=== PATIENT | female | born 1975 | race Hispanic/Latino ===

== ENCOUNTER 2020-09-02 06:42 | Observation (INO) | payer BC ==
[2020-08-27 16:59] LABS: BASOPHILS % (AUTO) 0.7 % (0.0-5.0); EOSINOPHILS % (AUTO) 1.8 % (0.0-8.0); HEMATOCRIT 40.4 % (36-48); LYMPHOCYTES % (AUTO) 27.2 % (21.0-51.0); MEAN CORPUSCULAR HEMOGLOBIN 28.8 pg (27.0-33.0); MEAN CORPUSCULAR HGB CONC 33.2 g/dL (32.0-36.0); MEAN CORPUSCULAR VOLUME 86.9 fL (79-99); MONOCYTES % (AUTO) 6.9 % (3.0-13.0); NEUTROPHILS % (AUTO) 63.1 % (40.0-77.0); PLATELET COUNT (AUTO) 334 K/uL (130-400); RED BLOOD CELL COUNT(AUTO) 4.65 MIL/uL (4.00-5.50); RED CELL DISTRIBUTION WIDTH 13.6 % (11.0-15.5); WHITE BLOOD COUNT (AUTO) 10.7 K/uL (4.8-10.8)
[2020-08-27 17:12] LABS: INR 0.94 (0.85-1.15); PROTHROMBIN TIME 10.3 SEC (9.6-11.6)
[2020-08-27 17:14] LABS: PARTIAL THROMBOPLASTIN TIME 28.2 SEC (26.3-35.5)
[2020-08-27 17:24] LABS: ALBUMIN 3.8 g/dL (3.5-5.0); BILIRUBIN,TOTAL 0.7 mg/dL (0.2-1.0); CREATININE 0.6 mg/dL (0.5-1.5); POTASSIUM 3.7 mmol/L (3.5-5.1); TOTAL PROTEIN, SERUM 8.1 g/dL (6.0-8.3)
[2020-09-01 09:17] VITALS: BP 123/71
[2020-09-02] VITALS (18 sets, daily range): BP systolic 125–156; BP diastolic 72–88
[~2020-09-02] VITALS: Ht 162.6 cm; Wt 72.6 kg
[2020-09-02] MEDS: CEFAZOLIN SODIUM 1 GM VIAL IVP SCH ×2 (06:00→07:50)
[~2020-09-02 06:42] MED LIST: ALBU0.63 IH; L-NO1TBD14 PO; METF-444 PO; VITAMIN D PO
[2020-09-02] MEDS ORDERED: EPINEPHRINE 1 MG/ML 30ML VIAL IJ ONE (06:49)
[2020-09-02] MEDS ORDERED: 0.9%NACL 1000ML 1,000 ML IV ONE (06:55)
[2020-09-02] MEDS ORDERED: ONDANSETRON 4MG INJ ONE (07:10)
[2020-09-02] MEDS ORDERED: MIDAZOLAM HCL 1 MG/ML 2ML VIAL ONE (07:10)
[2020-09-02] MEDS ORDERED: ESMOLOL HCL 10 MG/ML 10 ML VIAL ONE (07:10)
[2020-09-02] MEDS ORDERED: LIDOCAINE PF 100MG/5ML (2%) SYRINGE 5ML ONE (07:10)
[2020-09-02] MEDS ORDERED: FENTANYL CITRATE PF 50 MCG/1 ML 2ML VIAL ONE ×2 (07:11→09:36)
[2020-09-02] MEDS ORDERED: ROCURONIUM 10MG/1ML SYR 10 MG/ML ML ONE ×2 (07:11→08:59)
[2020-09-02] MEDS ORDERED: PROPOFOL 10 MG/ML 20ML VIAL IV ONE ×2 (07:11→08:45)
[2020-09-02] MEDS ORDERED: BUPIVACAINE/EPI/PF 0.25% 30ML VIAL IJ ONE (07:56)
[2020-09-02] MEDS ORDERED: SUGAMMADEX SODIUM 200 MG/2 ML VIAL IV ONE (09:41)
[2020-09-02] MEDS ORDERED: ACETAMINOPHEN 500 MG TABLET PO SCH (12:00)
[2020-09-02] MEDS ORDERED: 0.9%NACL 1000ML 1,000 ML IV SCH (12:30)
[2020-09-02] MEDS: ACETAMINOPHEN 650 MG/20.3 ML UDCUP PO SCH ×2 (12:38→17:36)
[2020-09-02] MEDS: OXYCODONE HCL 5 MG TAB PO PRN ×2 (14:05→22:22)
[2020-09-02] MEDS: METFORMIN HCL 500 MG TABLET PO SCH (17:35)
[2020-09-03] MEDS: ACETAMINOPHEN 650 MG/20.3 ML UDCUP PO SCH ×2 (01:11→06:33)
[2020-09-03 03:52] VITALS: BP 107/53
[2020-09-03 07:30] VITALS: BP 121/71
[2020-09-03] MEDS ORDERED: ALBUTEROL 0.083% 2.5 MG/3 ML INH IH SCH (09:00)
[2020-09-03] MEDS ORDERED: NORGEST ETH ESTR PO SCH (09:00)
[2020-09-03] MEDS ORDERED: ETHIN ESTRA PO SCH (09:00)
[2020-09-03] MEDS: METFORMIN HCL 500 MG TABLET PO SCH (09:01)
[2020-09-03 11:00] VITALS: BP 103/60
[2020-09-09] MEDS ORDERED: ERGOCALCIFEROL (VITAMIN D2) 50,000 UNIT CAPSULE PO SCH (09:00)
== END 2020-09-03 12:00 | disposition home or self-care (01) ==
LOC: DAH 06:42 → DAHIP 06:43 → DAH 06:43 → 3CH 10:41 → 3BH 10:44
PROVIDERS: ADMIT Otolaryngology; ATTEND Otolaryngology
DX: J35.1 Hypertrophy of tonsils (principal); Z20.822 Contact with and (suspected) exposure to COVID-19; K21.9 Gastro-esophageal reflux disease without esophagitis; E78.5 Hyperlipidemia, unspecified; F43.10 Post-traumatic stress disorder, unspecified; E55.9 Vitamin D deficiency, unspecified; G47.33 Obstructive sleep apnea (adult) (pediatric); E11.9 Type 2 diabetes mellitus without complications; Z79.84 Long term (current) use of oral hypoglycemic drugs; Z79.899 Other long term (current) drug therapy
CPT/HCPCS: 36415; 42826; 80053; 81025; 82948 ×2; 85025; 85610; 85730; 87635; 93005; 96360; 96361 ×2; A4215; A4221; A4222; A4223; A4663; C9803; G0378 ×26; J0171; J0690; J2001; J2250; J2405; J2704 ×2; J3010 ×2; J3490 ×2; J7030